=== PATIENT | female | born 1945 | race Two or more races ===

== ENCOUNTER 2024-10-03 10:02 | Inpatient (IN) | payer MEDICARE, MEDICAID, SELFPAY ==
[2024-10-03] VITALS (9 sets, daily range): BP systolic 159–195; BP diastolic 40–63; PULSE 42–50; RESP 15–24; TEMP 36.1–37.1; O2SAT 92–95
--- NOTE | 2024-10-03 10:20 | XR_ITS ---
Examination: PA lateral chest 2 views TECHNIQUE: Upright PA lateral chest 2 views Date and time: October 03, 2024 1024 hours INDICATIONS: Chest pain today. FINDINGS: Moderate CHF Mild enlargement cardiac contour. Prominent vascular congestion including central vascular engorgement and perihilar edema Consider superimposed bilateral pneumonia. Increased AP dimension chest IMPRESSION: Moderate CHF Consider superimposed bilateral pneumonia
--- NOTE | 2024-10-03 10:20 | EKG_ITS ---
[facility] Test Date: 2024-10-03 Pat Name: KAUSHAL SANON Department: Room: - Gender: Female [employer]: : 1945 Requested By: Scott Golden Order Number: [id number] Reading MD: Scott Golden Measurements Intervals [place] Rate: 44 P: 9 GA: 155 QRS: 110 QRSD: 140 T: 71 QT: 480 QTc: 412 Interpretive Statements SINUS BRADYCARDIA INDETERMINATE AXIS RIGHT BUNDLE BRANCH BLOCK [120+ ms QRS DURATION, UPRIGHT V1, 40+ ms S IN I/aVL/V4/V5/V6] No previous ECG available for comparison /store/S0/[id number]
--- NOTE | 2024-10-03 10:20 | PD.EDRME ---
Rapid Medical Screening Exam [facility] Arrival date/time: 10/03/24 10:02 79-year-old female with no known medical history presents to the emergency room with a chief complaint of cough, shortness of breath, generalized weakness x 1 week. Patient was sent over by her primary care provider to rule out pneumonia I have greeted and performed a focused initial assessment of this patient. A comprehensive ED assessment and evaluation of the patient, analysis of all test results, and completion of the medical decision making process will be conducted by additional ED providers. Chief Complaint: Shortness of Breath/Dyspnea Vital signs: Vital Signs Temperature 98.7 F 10/03/24 10:16 Pulse Rate 47 L 10/03/24 10:16 Respiratory Rate 24 H 10/03/24 10:16 Blood Pressure 168/63 H 10/03/24 10:16 Pulse Oximetry (%) 95 10/03/24 10:16 Oxygen Delivery Method Room Air 10/03/24 10:16 Vital signs reviewed by provider: Yes
[2024-10-03 10:38] LABS: Basophils # (Auto) 0.0 Thou/mm3 (0.0-0.2); Basophils % (Auto) 1 % (0-2.5); Eosinophils # (Auto) 0.0 Thou/mm3 (0.0-0.5); Eosinophils % (Auto) 1 % (0-10); Hematocrit 39.2 % (36.0-46.0); Hemoglobin 13.0 g/dL (12.0-16.0); Immature Granulocytes Auto 0.02 Thou/mm3 (0.00-0.00); Lymphocytes # (Auto) 0.9 Thou/mm3 (1.0-4.8); Lymphocytes % (Auto) 14 % (10-50); Mean Corpuscular HGB Conc 33.2 g/dl (31.0-37.0); Mean Corpuscular Hemoglobin 31.3 pg (25.0-35.0); Mean Corpuscular Volume 95 fL (80-100); Monocytes # (Auto) 0.6 Thou/mm3 (0.0-0.8); Monocytes % (Auto) 9 % (0-12); Neutrophils # (Auto) 4.9 Thou/mm3 (1.8-7.7); Neutrophils % (Auto) 75 % (37-80); Nucleated Red Blood Cell # 0.00 Thou/mm3 (0.00-0.00); Nucleated Red Blood Cell % 0 /100 WBC (0); Platelet Count 147 Thou/mm3 (140-440); RDW Standard Deviation 48.6 fL (36.4-46.3); Red Blood Count 4.15 Miln/mm3 (4.00-5.20); White Blood Count 6.5 Thou/mm3 (3.6-11.0)
[2024-10-03 10:56] LABS: INR 1.0 (0.9-1.3); Partial Thromboplastin Time 25.6 Seconds (22.0-36.0); Prothrombin Time 11.0 Seconds (9.0-12.2)
[2024-10-03 10:57] LABS: B-Type Natriuretic Peptide 758 pg/mL (0-100)
[2024-10-03 11:05] LABS: Alanine Aminotransferase 78 U/L (10-49); Albumin, Serum 4.3 gm/dL (3.4-4.8); Albumin/Globulin Ratio 2.0 (1.2-2.2); Alkaline Phosphatase 127 U/L (46-116); Anion Gap 11 (7-16); Aspartate Amino Transferase 91 U/L (0-34); BUN/Creatinine Ratio 19 Ratio (12-20); Bilirubin,Total 0.9 mg/dL (0.3-1.2); Blood Urea Nitrogen 13 mg/dL (9-23); Calcium 9.3 mg/dL (8.3-10.6); Calcium (Corrected) 9.3 mg/dL (8.5-10.1); Carbon Dioxide 26.3 mMol/L (20.0-31.0); Chloride 107 mMol/L (98-107); Creatinine (Component) 0.7 mg/dL (0.6-1.3); Globulin 2.1 gm/dL (2.3-3.5); Glucose 136 mg/dL (74-106); Osmolality,Calculated 288 (275-295); Potassium 4.1 mMol/L (3.4-5.1); Sodium 144 mMol/L (136-145); Total Protein 6.4 gm/dL (5.7-8.2); Troponin I 0.026 ng/mL (0.0-0.045); eGFR > 60 See Note
[2024-10-03 11:23] LABS: Collection Type, Urine Clean Catch
--- NOTE | 2024-10-03 11:37 | PD.EDSOB ---
ED SOB =RME/HPI General Chief Complaint: Shortness of Breath/Dyspnea Stated Complaint: SOB, WEAKNESS; SENT BY PCP Time Seen by Provider: 10/03/24 11:34 Arrival date/time: 10/03/24 10:02 Limitations: no limitations RME / HPI RME / HPI Narrative: 10/03/24 10:02 79-year-old female with no known medical history presents to the emergency room with a chief complaint of cough, shortness of breath, generalized weakness x 1 week. Patient was sent over by her primary care provider to rule out pneumonia. She is wearing a cardiac monitoring patch. 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 No history of ACS. She does have a history of hypertension and hyperlipidemia. No other chronic disease. She has had no syncopal episodes or fall. No chest pain. No nausea or vomiting. No lower leg edema. She does endorse new, significant, exertional dyspnea and orthopnea. She has no other acute concerns. Related Data Allergies Allergy/AdvReac Type Severity Reaction Status Date / Time No Known Allergies Allergy Verified 10/03/24 10:08 Review of Systems Review of Systems Systems Reviewed: All systems reviewed, normal except as documented ED Exam General Limitations: Present no limitations General appearance: Present alert and in no apparent distress Head Head exam: Present atraumatic Eye Eye exam: Present normal appearance, PERRL and EOMI ENT ENT exam: Present normal exam, normal oropharynx and mucous membranes moist Neck Neck exam: Present normal inspection, full ROM and trachea midline Chest Chest inspection: Present normal inspection and symmetric chest wall rise Respiratory Respiratory exam: Present respiratory distress and other (Crackles noted bilaterally. With moderate tachypnea.) Cardiovascular Cardiovascular exam: Present normal rhythm, bradycardia and normal heart sounds Abdominal Exam Abdominal exam: Present soft and normal bowel sounds Extremities Exam Extremities exam: Present normal inspection and full ROM Back Exam Back exam: Present normal inspection and full ROM Neurological Exam Neurological exam: Present alert and oriented X3 Psychiatric Psychiatric exam: Present normal affect and normal mood Skin Skin exam: Present warm, dry, intact and normal color Course Quality Measures none Orders Category Date Time Status COVID-19 Screening Questionnaire NOW Care 10/03/24 12:00 Active Decision to Admit X1 Care 10/03/24 12:00 Active EKG (ED ONLY) *Do not use* NOW Care 10/03/24 10:20 Completed EKG (ED Only) Stat Exams 10/03/24 10:20 Draft XR chest 2V Stat Exams 10/03/24 10:20 Completed B-Type Natriuretic Peptide Stat Lab 10/03/24 10:28 Completed CBC Stat Lab 10/03/24 10:28 Completed Comprehensive Metabolic Panel Stat Lab 10/03/24 10:28 Completed Partial Thromboplastin Time Stat Lab 10/03/24 10:28 Completed Prothrombin Time with INR Stat Lab 10/03/24 10:28 Completed Troponin I Stat Lab 10/03/24 10:28 Completed Urinalysis Stat Lab 10/03/24 10:45 Received Furosemide [Lasix Inj] Med 10/03/24 11:46 Discontinued 40 mg IVP X1 ONE cefTRIAXone/D5w 1gm IV premix [Rocephin/D5w 1gm IV Med 10/03/24 11:57 Active premix] 1 gm in 50 ml IV X1 Vital Signs Vital signs: Vital Signs Temperature 98.7 F 10/03/24 10:16 Pulse Rate 47 L 10/03/24 10:16 Respiratory Rate 24 H 10/03/24 10:16 Blood Pressure 168/63 H 10/03/24 10:16 Pulse Oximetry (%) 95 10/03/24 10:16 Oxygen Delivery Method Room Air 10/03/24 10:16 Shortness of Breath / Dyspnea MDM Narrative MDM Narrative:: 10/03/24 10:02 79-year-old female with no known medical history presents to the emergency room with a chief complaint of cough, shortness of breath, generalized weakness x 1 week. Patient was sent over by her primary care provider to rule out pneumonia. She is wearing a cardiac monitoring patch. 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 No history of ACS. She does have a history of hypertension and hyperlipidemia. No other chronic disease. She has had no syncopal episodes or fall. No chest pain. No nausea or vomiting. No lower leg edema. She does endorse new, significant, exertional dyspnea and orthopnea. She has no other acute concerns. On exam, patient's vital signs are stable. She does have mild to moderate tachypnea 28 to 30 breaths/min. She has crackles bilaterally. No pitting edema. Workup reveals no leukocytosis or anemia. Procedures she has elevated glucose at 136 and elevated liver enzymes the AST at 191, ALT of 78, alk phos of 127. Her BNP is 758. Troponin is not elevated. Discussed the need to admit with the patient and her . We are starting on furosemide. We will give her a dose of ceftriaxone for questionable pneumonia. Call placed to hospitalist who will evaluate the patient for admission. Patient data External records reviewed:: None Clinical information provided by:: patient and family Social determinants that could affect healthcare access:: none Patient has the following chronic illnesses:: Hyperlipidemia, hypertension How is presenting disease/condition affected by chronic disease/condition?: exacerbated by Evaluation data The following diagnostics were reviewed and interpreted by me:: EKG tracing(s) (Sinus bradycardia at 44 bpm with no GA prolongation, ST changes, there are nonspecific T wave changes. ) Lab and/or radiology exams considered but not ordered:: n/a Interpretation Summary: CHF, questionable pneumonia, bradycardia Medications / Prescriptions Medications or Prescriptions considered but not ordered:: n/a Medication administrations:: Medication Administration History Ceftriaxone Sodium/Dextrose (Rocephin/D5w 1gm Iv Premix) 1 gm in 50 mls @ 100 mls/hr IV X1 ONE Stop: 10/03/24 12:26 Discontinued Medications Furosemide (Furosemide Inj 10 Mg/Ml Vial 2 Ml) 40 mg IVP X1 ONE Stop: 10/03/24 11:47 See above Consultations Consultation(s) initiated? (list below): No Diagnosis Shortness of Breath Differential Diagnosis: congestive heart failure, community acquired pneumonia and asthma with exacerbation Most likely diagnosis given after review of the tests above:: CHF, bradycardia Admission Indicated Admission indicated?: indicated Admission Request Was there a request for admission?: Yes Admission Attestation Admission request attestation: Discussed case with [] from Hospitalist service regarding admission. Discussed patients ED course, exam findings, labs, and radiology results. The Hospitalist [agrees,declines] to accept the patient for admission. Disposition Plan Disposition Plan: Admit Discharge Plan Plan Patient Disposition: Admit Acute Care w/in Hospital Patient condition on transfer: Stable Problem List Clinical Impression: Community acquired pneumonia, Congestive heart failure, Bradycardia Patient/Caregiver Discharge Instructions Print Language: Colombian Stand Alone Forms: [employer] Award Info., Patient Portal Info Letter
[2024-10-03] MEDS: FUROSEMIDE INJ 10 MG/ML VIAL 2 ML 40 MG IVP (12:11)
[2024-10-03 12:28] LABS: Bilirubin,Urine Negative (Negative); Blood,Urine 1+ (Negative); Clarity,Urine Turbid (Clear/Hazy); Color,Urine Yellow (Lt Yel-Yel); Glucose, Urine Trace (Negative); Ketones,Urine Negative (Negative); Leukocyte Esterase,Urine Positive (Negative); Nitrite,Urine Negative (Negative); PH,Urine 6.0 (5.0-7.0); Protein,Urine 1+ (Neg - Trace); RBC,Urine 8 /hpf (0-3); Specific Gravity,Urine 1.028 (1.001-1.035); Squamous Epithelial Cell,Urine 19 /hpf (0-5); Urobilinogen,Urine 2.0 mg/dL (0.0-1.0); WBC,Urine 41 /hpf (0-5)
--- NOTE | 2024-10-03 12:39 | ECHO_ITS ---
Transthoracic Echo Report Ht (in): Wt (lb): 117 Exam Location: Echo Lab Status: Emergency Doctor Of Veterinary Medicine: Nadia Hernandez Indications: Procedure Performed: BP: 164 / 46 HR: 44 Technical Quality: Technically difficult study MEASUREMENTS (Male / Female) Normal Values 2D ECHO LV Diastolic Diameter PLAX 5.0 cm 4.2 - 5.9 / 3.9 - 5.3 cm LV Systolic Diameter PLAX 3.2 cm IVS Diastolic Thickness 0.9 cm 0.6 - 1.0 / 0.6 - 0.9 cm LVPW Diastolic Thickness 1.0 cm 0.6 - 1.0 / 0.6 - 0.9 cm LV Relative Wall Thickness 0.4 LVOT Diameter 1.7 cm Aortic Root Diameter 2.4 cm LA Systolic Diameter LX 3.4 cm 3.0 - 4.0 / 2.7 - 3.8 cm LV Ejection Fraction MOD 4C 59.8 % LV Ejection Fraction 4C AL 60.7 % Ascending Aorta Diameter 2.4 cm M-MODE Aortic Root Diameter MM 2.8 cm LA Systolic Diameter MM 4.5 cm LA Ao Ratio MM 1.6 AV Cusp Separation MM 1.9 cm DOPPLER AV Peak Velocity 177.0 cm/s AV Peak Gradient 12.5 mmHg AV Mean Gradient 6.0 mmHg AV Velocity Time Integral 42.6 cm AI Peak Velocity 386.0 cm/s AI Peak Gradient 59.6 mmHg AI Pressure Half Time 952.0 ms LVOT Peak Velocity 150.5 cm/s LVOT Peak Gradient 9.1 mmHg LVOT Velocity Time Integral 34.4 cm AV Area Cont Eq vti 1.8 cm? AV Area Cont Eq pk 1.9 cm? MV Area PHT 5.1 cm? MR Peak Velocity 429.0 cm/s MR Peak Gradient 73.6 mmHg Mitral E Point Velocity 75.7 cm/s Mitral A Point Velocity 95.6 cm/s Mitral E to A Ratio 0.8 LV E' Lateral Velocity 6.2 cm/s Mitral E to LV E' Lateral Ratio 12.2 LV E' Septal Velocity 3.2 cm/s Mitral E to LV E' Septal Ratio 23.7 TR Peak Velocity 246.0 cm/s TR Peak Gradient 24.2 mmHg PV Peak Velocity 167.0 cm/s PV Peak Gradient 11.2 mmHg FINDINGS Left Ventricle Normal left ventricular size, wall thickness, systolic function with no obvious regional wall motion abnormalities. The ejection fraction is visually estimated at 55-60 %. There is grade I diastolic dysfunction of the left ventricle (impaired relaxation pattern). Right Ventricle The right ventricle is normal in size and systolic function. The estimated right ventricular systolic pressure, 30 mmHg. RAP 5. Left Atrium The left atrial cavity size is moderately increased. Right Atrium The right atrium is normal by two-dimensional imaging, color flow and Doppler imaging with no structural abnormalities, no thrombus formation present. Atrial Septum The interatrial septum appears normal with no evidence of a shunt. Aorta The aorta is normal by two-dimensional, color flow and Doppler interrogation. Mitral Valve The mitral valve is normal by two-dimensional, color flow and Doppler interrogation. Mild mitral regurgitation. Aortic Valve [id number] aortic valve regurgitation. Tricuspid Valve The tricuspid valve is normal by two-dimensional, color flow and Doppler interrogation. There is mild tricuspid valve regurgitation. Pulmonic Valve Mild pulmonic valve regurgitation. Vessels The pulmonary artery appears normal. The inferior vena cava pulmonary and hepatic veins appear normal. Pericardium There is a tiny, hemodynamically insignificant pericardial effusion. CONCLUSIONS Indication: CHF Normal LV size, wall thickness. Estimated EF at 55-60 %. Grade I diastolic dysfunction. The RV is normal in size and systolic function. The estimated RVSP , 30 mmHg. RAP 5. Modertely dilated LA and mildly dilated RA. Mild MR, TR and PI. Mild AI. No pericardial effusion. Jerzy Pelletier (Electronically Signed) Final Date: 04 October 2024 21:44
[2024-10-03] MEDS: cefTRIAXone/D5w 1gm IV premix 1 GM/50 ML BAG IV (12:54)
--- NOTE | 2024-10-03 13:19 | ESHP_ITS ---
<Statement entered by Deep Zhang MD - 10/03/24 16:22> This patient is a 79-year-old female with past medical history of hypertension hyperlipidemia presented with shortness of breath, x 1 week ago. She reported that she has been having shortness of breath with orthopnea and PND. Patient had mild trace edema on her lower extremities. She is also following her treater helper in [place] for sinus bradycardia with a Holter monitor. Denies any chest pain. In the ED, patient's blood pressure was elevated with mild elevation in troponin I. Patient will be admitted for workup of CHF, and hypertensive emergency. Patient will be continued on strict AMNA's, fluid restriction, Lasix 40 mg IV twice daily, echocardiogram and cardiology has been consulted for further evaluation. Electrolytes will be repleted as necessary. Will continue to monitor heart rate as well. All labs and orders were reviewed. Patient will be continued on lisinopril 10 mg since blood pressure was elevated and dropped after diuresing with IV lasix. we will continue with current management. I discussed and supervised with the hospital internship physician who took care of this patient. I personally saw and examined the patient. I agree with most of the assessment and plan. Disclaimer: Despite multiple revisions, due to the dictation software being used, the document bellow may not be free of grammatical errors including phonetic/typographic errors. However, this does not deter from our commitment to providing health care in the patient's best interest in mind. Plan of care discussed with attending Physician Dr. Mayda Zhang MD PGY-3 Documentation for date of: 10/03/24 HPI History of Present Illness Chief complaint: Shortness of Breathe/Dyspnea History of present illness: Mrs. Stewart is a 79F with history of HTN and hyperlipidemia presents for shortness of breathe. Pt reports she has been getting short of breathe for the past week with some cough, and requires head elevation at night with pillows to help her sleep. She reports exertional dyspnea and can only walk 10-12 steps before she gets short of breathe. She does not use oxygen at home. She was recently seen at a cardiology clinic in [place], [place] for bradycardia, where she was put on a Holster monitor. Pt denies nasuea, vomiting, chest pain, abdominal pain, dysuria, dizziness, syncope, or lightheadedness. She denies any cardiac stents, surgery, or cardiac history. Last bowel movement was yesterday. On exam, pt appears tachypeanic with accessory muscle use. Crackles auscultated at bilateral lower lung field. Blood pressure noted to be at 200s/40s on initial encounter. She's admitted for CHF exacerbation. ED Course In the ED, WBC 6.5, Hgb 13.0, Na 144, K 4.1, Cl 107, Cr 0.7, BNP 758. Initial troponin was 0.026, repeat trop 0.034. UA shows 41 WBC, 19 Squamous Epithelial cells, and positive leukocyte esterase. Chest XR shows : moderate CHF, prominent vascular congestion, perihilar edema, consider superimposed bilateral pneumonia. EKG shows sinus roberto carlos at rate of 44. Ceftriaxone 1g given. Furosemide 40mg x1. ROS * Constitutional: sob, a/o x 3, denies fever/chills * GI: Denies nausea, vomiting. * CV: Denies chest pain or palpitations. * Resp: +SOB, +orthopnea * : Denies dysuria, CVA tenderness, suprapubic tenderness. * Neuro: Denies dizziness, syncope. No focal neuro deficit. * Skin: dry and intact. Past Medical History * Hypertension * Hyperlipidemia Social History * Denies alcohol or drug use. * Smoke 2-3 cig/day. Reports cessation of cigarette use. Surgical History * left knee surgery Allergies * NKDA Home Meds * Albuterol sulfate INH Q4H PRN * Aspirin 81 mg PO QD * Atorvastatin 20mg PO QD * Vitamin D3 50mcg PO QD * Lisinopril 5mg PO QD * Nitroglycerin 0.4mg buccal PRN Exam Vital Signs Temp Pulse Resp BP Pulse Ox O2 Del Method 98.7 F 48 L 24 H 195/59 H 95 Room Air 10/03/24 10:16 10/03/24 12:11 10/03/24 10:16 10/03/24 12:11 10/03/24 10:16 10/03/24 10:16 Narrative Exam General: Oriented x 3, tachypneic, distressed. Skin: Good turgor, no rash, unusual bruising or prominent lesions. Head: Normocephalic, atraumatic, no visible or palpable masses, depressions, or scaring. Neck: No JVD noted. Heart: Bradycardic, +S1/S2, no gallops Lungs: Bilateral crackles to lower lung field. Abdomen: No tenderness, organomegaly, masses, or hernia Extremities: No amputations or deformities, cyanosis, edema or varicosities, peripheral pulses intact. No bilateral pitting edema Results: Labs 10/04/24 04:47 10/04/24 04:47 Labs: Short CBC 10/03/24 Range/Units 10:28 WBC 6.5 (3.6-11.0) Thou/mm3 Hgb 13.0 (12.0-16.0) g/dL Hct 39.2 (36.0-46.0) % Plt Count 147 (140-440) Thou/mm3 BMP 10/03/24 10:28 Sodium 144 Potassium 4.1 Chloride 107 Carbon Dioxide 26.3 BUN 13 Creatinine 0.7 Glucose 136 H Calcium 9.3 Cardiac Enzymes 10/03/24 Range/Units 10:28 Troponin I 0.026 (0.0-0.045) ng/mL Liver Function 10/03/24 Range/Units 10:28 Total Bilirubin 0.9 (0.3-1.2) mg/dL AST 91 H (0-34) U/L ALT 78 H (10-49) U/L Alkaline Phosphatase 127 H (46-116) U/L Albumin 4.3 (3.4-4.8) gm/dL Urine 10/03/24 Range/Units 10:45 Urine Color Yellow (Lt Yel-Yel) Urine Clarity Turbid A (Clear/Hazy) Urine pH 6.0 (5.0-7.0) Ur Specific [place] 1.028 (1.001-1.035) Urine Protein 1+ A (Neg - Trace) Urine Glucose (UA) Trace (Negative) Quality Measures Quality Measures none Advance care planning discussed with:: patient Medications Home Medications and Allergies Home Medications ?Medication ?Instructions ?Recorded ?Confirmed ?Type albuterol sulfate 90 mcg/actuation 1 inh inhalation Q4 H PRN shortness 10/03/24 10/03/24 History aerosol inhaler of breath or wheezing aspirin 81 mg tablet 81 mg PO QDAY 10/03/2410/03 History atorvastatin 20 mg tablet 20 mg PO QDAY 10/03/2410/03 History cholecalciferol (vitamin D3) 50 50 mcg PO QDAY 5 10/03/24 History mcg (2,000 unit) tablet (D3 DOTS) lisinopril 5 mg tablet 5 mg PO QDAY 10/03/24 History nitroglycerin 0.4 mg sublingual 0.4 mg buccal Q5MIN IN N chest pain 10/03/24 10/03/24 History tablet Allergies Allergy/AdvReac Type Severity Reaction Status Date / Time No Known Allergies Allergy Verified 10/03/24 10:08 Visit Medications Acetaminophen (Acetaminophen 325 Mg Tablet) 650 mg PO Q6H PRN PRN Reason: Fever >101.5 Stop: 11/02/24 12:36 Acetaminophen (Acetaminophen 325 Mg Tablet) 650 mg PO Q6H PRN PRN Reason: PAIN SCALE 1-3 (mild Stop: 11/02/24 12:36 Albuterol (Albuterol Inh 8 Gm) 1 puff INH Q4H PRN PRN Reason: shortness of breath or wheezing Stop: 11/02/24 12:35 Aspirin (Aspirin Ec 81 Mg Tabec) 81 mg PO QDAY [facility] Stop: 11/02/24 12:44 Atorvastatin Calcium (Atorvastatin Calcium 20 Mg Tablet) 20 mg PO HS [facility] Stop: 11/02/24 20:59 Dextrose (Dextrose 50%-Water Inj 50 Ml Syringe) 25 ml IV Q15MIN PRN PRN Reason: BG 50-70 responsive npo pt Stop: 11/02/24 12:42 Dextrose (Dextrose 50%-Water Inj 50 Ml Syringe) 50 ml IV Q15MIN PRN PRN Reason: BG <50 OR BG <70 & pt unresponsive Stop: 11/02/24 12:42 Furosemide (Furosemide Inj 10 Mg/Ml 4ml Vial) 40 mg IVP BIDD [facility] Stop: 11/02/24 17:59 Glucagon (Glucagon Inj 1 Mg Vial) 1 mg IM Q15MIN PRN PRN Reason: BG <70, and no IV access Heparin Sodium (Porcine) (Heparin Sod Inj 5000 Unit/Ml Vial) 5,000 unit SC Q8HR [facility] Stop: 10/17/24 13:59 Insulin Human Lispro (Insulin Lispro (Admelog) 1 Unit/0.01 Ml Unit) 0 unit SC AC [facility]; Protocol Stop: 11/02/24 16:59 Lisinopril (Lisinopril 20 Mg Tablet) 20 mg PO QDAY SONU Stop: 11/03/24 08:59 Nitroglycerin (Nitroglycerin 0.4 Mg Subl Btl #25) 0.4 mg SL Q5MIN PRN PRN Reason: chest pain Stop: 11/02/24 12:35 Ondansetron HCl (Ondansetron Inj 2 Mg/Ml Inj 2 Ml) 4 mg IVP Q6H PRN; Protocol PRN Reason: NAUSEA OR VOMITING Stop: 11/02/24 12:36 Pantoprazole Sodium (Pantoprazole 40 Mg Tablet) 40 mg PO QDAY SONU Stop: 11/03/24 08:59 Sennosides (Senna Tablet) 1 tab PO QDAY PRN; Protocol PRN Reason: constipation Stop: 11/02/24 12:36 Discontinued Medications Furosemide (Furosemide Inj 10 Mg/Ml Vial 2 Ml) 40 mg IVP X1 ONE Stop: 10/03/24 11:47 Last Admin: 10/03/24 12:11 Dose: 40 mg Hydralazine HCl (Hydralazine Inj 20 Mg/Ml Vial) 5 mg IVP Q6HR PRN PRN Reason: SBP>180 Stop: 11/02/24 12:36 Ceftriaxone Sodium/Dextrose (Rocephin/D5w 1gm Iv Premix) 1 gm in 50 mls @ 100 mls/hr IV X1 ONE Stop: 10/03/24 12:26 Last Admin: 10/03/24 12:54 Dose: 100 mls/hr Lisinopril (Lisinopril 20 Mg Tablet) 20 mg PO X1 ONE Stop: 10/03/24 13:13 Assessment & Plan Plan 79F with history of hypertension and hyperlipidemia presents for SOB. She reports cough and orthopnea for the past week, denies chest pain or cardiac history. She was recently seen by an outpatient treater helper for bradycardia and is currently wearing a holster monitor. Wide pulse pressure noted on VS. Admitted for CHF Exacerbation. #CHF exacerbation History of orthopnea, bilateral fluffy infiltrate on chest XR. Initial BNP 758. - Furosemid 40mg - strict I/O - monitor fluid output - Plan for CPAP if pt decompensates #Hypertension urgency Initial BP on ED arrival 195/59. - Slowly decrease BP no more than 25% of initial BP - watch for signs of end organ damage. - Start Lisinopril 10mg #Possible COPD exacerbation Hx of smoking for unknown years. Consider superimposed bilateral pneumonia - Pending Cocci serology - Pending flu swabs #Asymptomatic Bradycardia Pt following treater helper outpatient, wearing a holster monitor. - Initial EKG in ED shows Sinus Bradycardia at a rate of 44. - Avoid Beta Blockers, diltizam, or verapamil - If symptomatic, consider external pacing #Asymptomatic pyuria Pt denies dysuria, suprapubic pain, CVA tenderness, afebrile - no treatment indicated unless symptomatic #Hyperlipidemia - Continue Atorvastatin 20mg PO HS - Follow up with PCP #Possible Aortic regurgitation Wide pulse pressure exceeding 60mmHg - Pending Echo - Consider TAVR - Cardiology consult #Transaminitis Initial AST 91, ALT 78. Likely from venous congestion. - Daily labs - Follow up with PCP Dispo: [facility] DVT prophylaxis: Heparin, SCDs GI prophylaxis: Protonix 40mg Diet: Cardiac diet Lines: Peripheral IV Code status: Full code Case discussed with my senior resident Dr. Zhang Case discussed with my attending Dr. Mayda Guzmán DO PGY 1 Attending Provider Attestation/Addendum Namita Noland DO, attest that I was physically present for the montes portions of the service and evaluated the patient with the resident and I reviewed and discussed the case with the resident and agree with the resident's findings and plans of care as documented above Patient is a 79-year-old female with past medical history of hypertension, hyperlipidemia and asymptomatic bradycardia who presented to the ED with worsening shortness of breath for the past week. Patient has been following a treater helper in [place] due to bradycardia and has a Holter monitor on. Patient states that she has noted worsening dyspnea on exertion limiting her daily activities. Patient also endorses having a dry cough and denies any recent sick contacts or travel. Upon evaluation in the ED, patient was noted to have chest x-ray showing prominent vascular congestion and perihilar edema and moderate CHF. Patient denies any fevers or chills or productive cough otherwise. Troponin was detectable but negative at 0.026. She is also noted to have trace bilateral pitting edema. Patient not requiring any supplemental O2 but is evidently short of breath while speaking. She also endorses having orthopnea. Patient noted to have elevated blood pressure of 195/59 on presentation. Suspect that pulmonary congestion may be secondary to on controlled hypertension as well. Patient takes lisinopril 5 mg daily. Will admit patient to telemetry for further workup and medical management of acute CHF exacerbation. Will obtain echocardiogram to evaluate for possible cardiomyopathy resulting in acute CHF exacerbation. Will start patient on Lasix 40 mg IV twice daily, follow ins and outs and daily weights. Will consult cardiology on-call for further recommendations as well.
[2024-10-03 13:41] LABS: Magnesium 1.7 mg/dL (1.6-2.6); Troponin I 0.034 ng/mL (0.0-0.045)
[2024-10-03] MEDS: HEPARIN SOD INJ 5000 UNIT/ML VIAL SC ×2 (14:12→21:01)
[2024-10-03] MEDS: ASPIRIN EC 81 MG TABEC PO (14:13)
[2024-10-03] MEDS: Magnesium Sulfate 2 GM Ivpb 2 GM/50 ML BAG IV (14:14)
[2024-10-03] MEDS: FUROSEMIDE INJ 10 MG/ML 4ML VIAL 40 MG IVP (17:35)
[2024-10-03 19:03] LABS: Troponin I 0.050 ng/mL (0.0-0.045)
[2024-10-03] MEDS: ATORVASTATIN CALCIUM 20 MG TABLET PO (20:42)
[2024-10-04] VITALS (12 sets, daily range): BP systolic 137–165; BP diastolic 49–72; PULSE 37–55; RESP 15–21; TEMP 36.1–36.6; O2SAT 93–96; BMI 24.5
[2024-10-04] MEDS: ACETAMINOPHEN 325 MG TABLET 650 MG PO ×3 (01:13→23:47)
[2024-10-04 01:30] LABS: Troponin I 0.040 ng/mL (0.0-0.045)
[2024-10-04] MEDS: HEPARIN SOD INJ 5000 UNIT/ML VIAL SC ×3 (06:02→21:10)
[2024-10-04] MEDS: FUROSEMIDE INJ 10 MG/ML 4ML VIAL 40 MG IVP ×2 (06:06→17:18)
[2024-10-04 06:10] LABS: Basophils # (Auto) 0.0 Thou/mm3 (0.0-0.2); Basophils % (Auto) 0 % (0-2.5); Eosinophils # (Auto) 0.2 Thou/mm3 (0.0-0.5); Eosinophils % (Auto) 3 % (0-10); Hematocrit 37.7 % (36.0-46.0); Hemoglobin 12.5 g/dL (12.0-16.0); Immature Granulocytes Auto 0.02 Thou/mm3 (0.00-0.00); Lymphocytes # (Auto) 1.1 Thou/mm3 (1.0-4.8); Lymphocytes % (Auto) 17 % (10-50); Mean Corpuscular HGB Conc 33.2 g/dl (31.0-37.0); Mean Corpuscular Hemoglobin 31.5 pg (25.0-35.0); Mean Corpuscular Volume 95 fL (80-100); Monocytes # (Auto) 0.7 Thou/mm3 (0.0-0.8); Monocytes % (Auto) 11 % (0-12); Neutrophils # (Auto) 4.2 Thou/mm3 (1.8-7.7); Neutrophils % (Auto) 69 % (37-80); Nucleated Red Blood Cell # 0.00 Thou/mm3 (0.00-0.00); Nucleated Red Blood Cell % 0 /100 WBC (0); Platelet Count 136 Thou/mm3 (140-440); RDW Standard Deviation 47.9 fL (36.4-46.3); Red Blood Count 3.97 Miln/mm3 (4.00-5.20); White Blood Count 6.1 Thou/mm3 (3.6-11.0)
[2024-10-04 06:22] LABS: INR 1.1 (0.9-1.3); Partial Thromboplastin Time 31.6 Seconds (22.0-36.0); Prothrombin Time 11.6 Seconds (9.0-12.2)
[2024-10-04 06:49] LABS: Glucose Estimated Average 128 mg/dL (80-131); Hemoglobin A1C 6.1 % Hgb (4.8-6.0)
[2024-10-04 06:55] LABS: Alanine Aminotransferase 52 U/L (10-49); Albumin, Serum 3.6 gm/dL (3.4-4.8); Albumin/Globulin Ratio 1.8 (1.2-2.2); Alkaline Phosphatase 106 U/L (46-116); Anion Gap 11 (7-16); Aspartate Amino Transferase 46 U/L (0-34); BUN/Creatinine Ratio 19 Ratio (12-20); Bilirubin,Total 0.8 mg/dL (0.3-1.2); Blood Urea Nitrogen 13 mg/dL (9-23); Calcium 8.7 mg/dL (8.3-10.6); Calcium (Corrected) 9.0 mg/dL (8.5-10.1); Carbon Dioxide 29.9 mMol/L (20.0-31.0); Cardiac Risk Estimate 2.1 RATIO (3.7-5.6); Chloride 102 mMol/L (98-107); Cholesterol 146 mg/dL (132-200); Creatinine (Component) 0.7 mg/dL (0.6-1.3); Globulin 2.0 gm/dL (2.3-3.5); Glucose 106 mg/dL (74-106); HDL Cholesterol 68 mg/dL (40-60); LDL Cholesterol,Calculated 60 mg/dL (0-130); Magnesium 1.8 mg/dL (1.6-2.6); Osmolality,Calculated 285 (275-295); Phosphorous 3.4 mg/dL (2.4-5.1); Potassium 3.6 mMol/L (3.4-5.1); Sodium 143 mMol/L (136-145); Thyroid Stimulating Hormone 2.57 uIU/mL (0.55-4.78); Total Protein 5.6 gm/dL (5.7-8.2); Triglycerides 90 mg/dL (30-150); eGFR > 60 See Note
[2024-10-04] MEDS: ASPIRIN EC 81 MG TABEC PO (08:18)
[2024-10-04] MEDS: PANTOPRAZOLE 40 MG TABLET PO (08:18)
[2024-10-04] MEDS: Magnesium Sulfate 4 GM Ivpb 4 GM/50 ML BAG IV (08:19)
[2024-10-04 08:28] LABS: Influenza A Ag Negative; Influenza B Ag Negative
--- NOTE | 2024-10-04 09:02 | ESPR_ITS ---
<Statement entered by Deep Zhang MD - 10/04/24 14:35> Patient was seen and examined at the bedside. Patient's breathing difficulty has markedly improved and she had adequate urine output with 2.2 L. Continues to have mild crackles bilaterally. Weight 53 kg. Patient will be continued on IV Lasix 40 mg IV twice daily. Currently awaiting cardiology recommendations for further optimization of heart failure meds. Heart rate has been around 40s however asymptomatic. Will continue to monitor. PT evaluated the patient today. I discussed and supervised with the materials intern physician who took care of this patient. I personally saw and examined the patient. I agree with most of the assessment and plan. Disclaimer: Despite multiple revisions, due to the dictation software being used, the document bellow may not be free of grammatical errors including phonetic/typographic errors. However, this does not deter from our commitment to providing health care in the patient's best interest in mind. Plan of care discussed with attending Physician Dr. Mayda Zhang MD PGY-3 Documentation for date of: 10/04/24 Subjective Subjective Interval history: No overnight events. Evaluated at bedside. Net fluid deficit 2210mL overnight. Pt appears well, reports significant improvement with breathing. Her vitals was stable overnight, with O2 sat at 95% on RA. Pt refers pain to her back, but was unspecific in severity and nature, likely from increased respiratory muscle use from CHF exacerbation yesterday. Pending echo and cardiology consult today. Exam Vital Signs Temp Pulse Resp BP Pulse Ox O2 Del Method 97.8 F 55 L 21 H 157/60 H 95 Room Air 10/04/24 08:00 10/04/24 08:18 10/04/24 08:00 10/04/24 08:18 10/04/24 08:00 10/04/24 08:00 Narrative Exam General: Well appearing, well nourished, in no distress. Oriented x 3, normal mood and affect. Ambulating without difficulty. Skin: Good turgor, no rash, unusual bruising or prominent lesions Neck: No JVD noted. Heart: No cardiomegaly or thrills; regular rate and rhythm, no murmur or gallop Lungs: Diminished lung sounds to bilateral lower lung henry. +crackles. Abdomen: Bowel sounds normal, no tenderness, organomegaly, masses, or hernia Extremities: No amputations or deformities, cyanosis, edema or varicosities, peripheral pulses intact. No bilateral pitting edema noted. Objective Labs 10/05/24 04:40 10/05/24 04:40 Labs: Laboratory Results - last 24 hr 10/03/24 10/03/24 10/03/24 10:28 10:45 12:56 WBC 6.5 RBC 4.15 Hgb 13.0 Hct 39.2 MCV 95 MCH 31.3 MCHC 33.2 RDW Std Deviation 48.6 H Plt Count 147 Neut % (Auto) 75 Lymph % (Auto) 14 [place] % (Auto) 9 Eos % (Auto) 1 Baso % (Auto) 1 Neut # (Auto) 4.9 Lymph # (Auto) 0.9 L [place] # (Auto) 0.6 Eos # (Auto) 0.0 Baso # (Auto) 0.0 Immature Gran # (Auto) 0.02 H Absolute Nucleated RBC 0.00 Immature Gran % 0 Nucleated RBC % 0 PT 11.0 INR 1.0 APTT 25.6 Sodium 144 Potassium 4.1 Chloride 107 Carbon Dioxide 26.3 Anion Gap 11 BUN 13 Creatinine 0.7 Estim Creat Clear Calc Not Performed. eGFR > 60 BUN/Creatinine Ratio [address] Glu mg/dL Hemoglobin A1c Calculated Osmolality 288 Calcium 9.3 Corrected Calcium 9.3 Phosphorus Magnesium 1.7 Total Bilirubin 0.9 AST 91 H ALT 78 H Alkaline Phosphatase 127 H Troponin I 0.026 0.034 B-Natriuretic Peptide 758 H* Total Protein 6.4 Albumin 4.3 Globulin 2.1 L Albumin/Globulin Ratio 2.0 Triglycerides Cholesterol LDL Cholesterol, Calc HDL Cholesterol Cholesterol/HDL Ratio TSH Ur Collection Type Clean Catch Urine Color Yellow Urine Clarity Turbid A Urine pH 6.0 Ur Specific [place] 1.028 Urine Protein 1+ A Urine Glucose (UA) Trace Urine Ketones Negative Urine Blood 1+ A Urine Nitrite Negative Urine Bilirubin Negative Urine Urobilinogen (Auto) 2.0 Ur Leukocyte Esterase Positive Urine RBC 8 H Urine WBC 41 H Ur Squamous Epith Cells 19 H Urine Bacteria None Influenza A (Rapid) Influenza B (Rapid) 10/03/24 10/04/24 10/04/24 18:19 01:00 04:47 WBC 6.1 RBC 3.97 L Hgb 12.5 Hct 37.7 MCV 95 MCH 31.5 MCHC 33.2 RDW Std Deviation 47.9 H Plt Count 136 L Neut % (Auto) 69 Lymph % (Auto) 17 [place] % (Auto) 11 Eos % (Auto) 3 Baso % (Auto) 0 Neut # (Auto) 4.2 Lymph # (Auto) 1.1 [place] # (Auto) 0.7 Eos # (Auto) 0.2 Baso # (Auto) 0.0 Immature Gran # (Auto) 0.02 H Absolute Nucleated RBC 0.00 Immature Gran % 0 Nucleated RBC % 0 PT 11.6 INR 1.1 APTT 31.6 Sodium 143 Potassium 3.6 D Chloride 102 Carbon Dioxide 29.9 Anion Gap 11 BUN 13 Creatinine 0.7 Estim Creat Clear Calc Not Performed. eGFR > 60 BUN/Creatinine Ratio [address] Glu mg/dL 128 Hemoglobin A1c 6.1 H Calculated Osmolality 285 Calcium 8.7 Corrected Calcium 9.0 Phosphorus 3.4 Magnesium 1.8 Total Bilirubin 0.8 AST 46 H ALT 52 H Alkaline Phosphatase 106 D Troponin I 0.050 H* 0.040 B-Natriuretic Peptide Total Protein 5.6 L Albumin 3.6 D Globulin 2.0 L Albumin/Globulin Ratio 1.8 Triglycerides 90 Cholesterol 146 LDL Cholesterol, Calc 60 HDL Cholesterol 68 H Cholesterol/HDL Ratio 2.1 L TSH 2.57 Ur Collection Type Urine Color Urine Clarity Urine pH Ur Specific [place] Urine Protein Urine Glucose (UA) Urine Ketones Urine Blood Urine Nitrite Urine Bilirubin Urine Urobilinogen (Auto) Ur Leukocyte Esterase Urine RBC Urine WBC Ur Squamous Epith Cells Urine Bacteria Influenza A (Rapid) Influenza B (Rapid) 10/04/24 07:36 WBC RBC Hgb Hct MCV MCH MCHC RDW Std Deviation Plt Count Neut % (Auto) Lymph % (Auto) [place] % (Auto) Eos % (Auto) Baso % (Auto) Neut # (Auto) Lymph # (Auto) [place] # (Auto) Eos # (Auto) Baso # (Auto) Immature Gran # (Auto) Absolute Nucleated RBC Immature Gran % Nucleated RBC % PT INR APTT Sodium Potassium Chloride Carbon Dioxide Anion Gap BUN Creatinine Estim Creat Clear Calc eGFR BUN/Creatinine Ratio Glucose Estimated Ave Glu mg/dL Hemoglobin A1c Calculated Osmolality Calcium Corrected Calcium Phosphorus Magnesium Total Bilirubin AST ALT Alkaline Phosphatase Troponin I B-Natriuretic Peptide Total Protein Albumin Globulin Albumin/Globulin Ratio Triglycerides Cholesterol LDL Cholesterol, Calc HDL Cholesterol Cholesterol/HDL Ratio TSH Ur Collection Type Urine Color Urine Clarity Urine pH Ur Specific [place] Urine Protein Urine Glucose (UA) Urine Ketones Urine Blood Urine Nitrite Urine Bilirubin Urine Urobilinogen (Auto) Ur Leukocyte Esterase Urine RBC Urine WBC Ur Squamous Epith Cells Urine Bacteria Influenza A (Rapid) Negative Influenza B (Rapid) Negative Quality Measures Quality Measures none Advance care planning discussed with:: patient Assessment & Plan Assessment Current Active Medications: Generic Name Dose Route Start Last Admin Trade Name Freq PRN Reason Stop Dose Admin Acetaminophen 650 mg 10/03/24 12:37 Acetaminophen 325 Mg Tablet PO 11/02/24 12:36 Q6H PRN Fever >101.5 Acetaminophen 650 mg 10/03/24 12:37 10/04/24 01:13 Acetaminophen 325 Mg Tablet PO 11/02/24 12:36 650 mg Q6H PRN Administration PAIN SCALE 1-3 (mild Albuterol 1 puff 10/03/24 12:36 Albuterol Inh 8 Gm INH 11/02/24 12:35 Q4H PRN shortness of breath or wheezing Aspirin 81 mg 10/03/24 12:45 10/04/24 08:18 Aspirin Ec 81 Mg Tabec PO 11/02/24 12:44 81 mg QDAY SONU Administration Atorvastatin Calcium 20 mg 10/03/24 21:00 10/03/24 20:42 Atorvastatin Calcium 20 Mg Tablet PO 11/02/24 20:59 20 mg HS SONU Administration Dextrose 25 ml 10/03/24 12:43 Dextrose 50%-Water Inj 50 Ml Syringe IV 11/02/24 12:42 Q15MIN PRN BG 50-70 responsive npo pt Dextrose 50 ml 10/03/24 12:43 Dextrose 50%-Water Inj 50 Ml Syringe IV 11/02/24 12:42 Q15MIN PRN BG <50 OR BG <70 & pt unresponsive Furosemide 40 mg 10/03/24 18:00 10/04/24 06:06 Furosemide Inj 10 Mg/Ml 4ml Vial IVP 11/02/24 17:59 40 mg BIDD SONU Administration Glucagon 1 mg 10/03/24 12:43 Glucagon Inj 1 Mg Vial IM Q15MIN PRN BG <70, and no IV access Heparin Sodium (Porcine) 5,000 unit 10/03/24 14:00 10/04/24 06:02 Heparin Sod Inj 5000 Unit/Ml Vial SC 10/17/24 13:59 5,000 unit Q8HR SONU Administration Magnesium Sulfate 4 gm in 50 mls @ 12.5 mls/hr 10/04/24 07:27 10/04/24 08:19 Magnesium Sulfate Ivpb IV 10/04/24 11:26 12.5 mls/hr X1 ONE Administration Insulin Human Lispro 0 unit 10/03/24 17:00 10/04/24 08:11 Insulin Lispro (Admelog) 1 Unit/0.01 Ml Unit SC 11/02/24 16:59 Not Given AC SONU Protocol Lisinopril 10 mg 10/04/24 09:00 10/04/24 08:18 Lisinopril 2.5 Mg Tablet PO 11/03/24 08:59 10 mg QDAY SONU Administration Nitroglycerin 0.4 mg 10/03/24 12:36 Nitroglycerin 0.4 Mg Subl Btl #25 SL 11/02/24 12:35 Q5MIN PRN chest pain Ondansetron HCl 4 mg 10/03/24 12:37 Ondansetron Inj 2 Mg/Ml Inj 2 Ml IVP 11/02/24 12:36 Q6H PRN NAUSEA OR VOMITING Protocol Pantoprazole Sodium 40 mg 10/04/24 09:00 10/04/24 08:18 Pantoprazole 40 Mg Tablet PO 11/03/24 08:59 40 mg QDAY SONU Administration Sennosides 1 tab 10/03/24 12:37 Senna Tablet PO 11/02/24 12:36 QDAY PRN constipation Protocol Plan 79F with history of hypertension and hyperlipidemia presents for SOB. She reports cough and orthopnea for the past week, denies chest pain or cardiac history. She was recently seen by an outpatient cell plasterer for bradycardia and is currently wearing a holster monitor. Wide pulse pressure noted on VS. Admitted for CHF Exacerbation. #CHF exacerbation History of orthopnea, bilateral fluffy infiltrate on chest XR. Initial BNP 758. - Continue Furosemide 40mg - strict I/O - monitor fluid output - Plan for CPAP if pt decompensates #Hypertension urgency Initial BP on ED arrival 195/59. - Slowly decrease BP no more than 25% of initial BP - watch for signs of end organ damage. - Continue Lisinopril 10mg #Possible COPD exacerbation Hx of smoking for unknown years. Consider superimposed bilateral pneumonia - Pending Cocci serology - Flu A and B negative #Asymptomatic Bradycardia Pt following cell plasterer outpatient, wearing a holster monitor. - Initial EKG in ED shows Sinus Bradycardia at a rate of 44. - Avoid Beta Blockers, diltizam, or verapamil - If symptomatic, consider external pacing #Asymptomatic pyuria Pt denies dysuria, suprapubic pain, CVA tenderness, afebrile - no treatment indicated unless symptomatic #Prediabetes A1C 6.1 - follow up with PCP - prediabetes and diet education #Hyperlipidemia - Continue Atorvastatin 20mg PO HS - Follow up with PCP #Possible Aortic regurgitation Wide pulse pressure exceeding 60mmHg - Pending Echo - Consider TAVR - Pending Cardiology consult #Transaminitis Initial AST 91, ALT 78. Likely from venous congestion. - Daily labs - Follow up with PCP Dispo: [facility] DVT prophylaxis: Heparin, SCDs GI prophylaxis: Protonix 40mg Diet: Cardiac diet Lines: Peripheral IV Code status: Full code Case discussed with my senior resident Dr. Zhang Case discussed with my attending Dr. Mayda Guzmán DO PGY 1 Attending Provider Attestation/Addendum Namita Noland DO, attest that I was physically present for the montes portions of the service and evaluated the patient with the resident and I reviewed and discussed the case with the resident and agree with the resident's findings and plans of care as documented above Patient seen and evaluated a.m. She states that she is feeling well. Patient remains on room air, but this has bibasilar crackles. Remains on Lasix 40 mg IV twice daily. Will continue with IV diuresis. Bilateral lower extremity edema is now resolved at this time. Will follow-up with cardiology recommendations and echo results. Anticipate discharge within next 24 hours.
[2024-10-04 12:00] LABS: Cocci Serology, IgM Negative (Negative)
--- NOTE | 2024-10-04 12:18 | PC.PT ---
PT eval only. Patient is at her baseline. Patient is I with transfers and ambulation. (Pls see PT eval notes.)
--- NOTE | 2024-10-04 12:44 | PC.SS ---
Initial assessment: Patient is a 79-year old female admitted for SOB. Patient is Sinhala speaking. Patient was able to confirm demographic information. Patient does not recall the physical home address. Patient states she lives with her spouse, Shalom who is also her emergency contact. Per patient she is independent with ADL's and does not require any DME at home. Patient states she follows with primary care at [facility] in [place] and preferred pharmacy is [facility] in [place], [place]. Patient states her d/c plan is to return home and confirms that her family is able to transport upon return home. Patient denies any current needs/questions at this time. Patient provided her son: Steven Escalante if needed. D/c plan: Home Next of kin: Spouse, Shalom
--- NOTE | 2024-10-04 14:53 | PC.SS ---
Rounding note: patient is pending cardiology consultation. Possible d/c tomorrow. The d/c plan is pending.
--- NOTE | 2024-10-04 14:53 | PC.SS ---
Rounding note: patient is pending cardiology consult. Possible d/c tomorrow. D/c plan is to return home.
--- NOTE | 2024-10-04 17:00 | PD.RESCONSUL ---
HPI Data of Consult Requesting Physician: Namita Ohara DO Admitting Provider: Namita Ohara DO Attending Provider: Namita Ohara DO Primary Care Provider: Jermaine Spain MD Consult Narrative History of present illness: The patient is a 79-year-old female with significant past medical history of hypertension and hyperlipidemia presented to ED with gradual onset of shortness of breath for past 1 week. She reported associated orthopnea and PND, including GARVIN, able to walk 10-12 steps before getting SOB. Patient follow-up with physician tiler's assistant for cardiology in [place], and is on Holter monitor for bradycardia. The patient reported that she feels weak, but denied any dizziness, chest pain, palpitation, fever or chills, nausea or vomiting, any changes in bowel or bladder habit. During my evaluation, she was mildly hypertensive with blood pressure of 153/55, heart rate 44-45, RR 16, saturating 95% on room air. Labs revealed unremarkable CBC, CMP revealed sodium of 143, potassium 3.6, BUN 11, creatinine 0.7, A1c 6.1, magnesium 1.8, mild transaminitis with AST/ALT 46/52, and troponin 0.040. Cholesterol 146, LDL 60, HDL 68, TSH 2.57. Influenza A and influenza B were negative, chest x-ray was significant for moderate vascular congestion, with superimposed bilateral pneumonia. EKG revealed sinus bradycardia, with RBBB and QTc 412. TTE was significant for: Normal LV size, wall thickness. Estimated EF at 55-60 %. Grade I diastolic dysfunction. The RV is normal in size and systolic function. The estimated RVSP , 30 mmHg. RAP 5. Modertely dilated LA and mildly dilated RA. Mild MR, TR and PI. Mild AI. No pericardial effusion. PMH: As mentioned above Surgical history: Left knee surgery Social history: Smokes 2 to 3 cigarettes/day, 1-2. Smoking, denies alcohol or illicit drug use, good family support and lives with her children Home medications: Albuterol, aspirin, atorvastatin 20 Mg daily, vitamin D3, lisinopril 5 Mg daily, nitroglycerin 0.4 Mg buccal as needed Allergies: No known allergies Cardiology consultation was done for further management of new onset HFpEF exacerbation and bradycardia. cc:: cc: Namita Ohara DO Review of Systems Review of Systems Systems Reviewed: All systems reviewed, normal except as documented (Above) Exam Vital Signs Temp Pulse Resp BP Pulse Ox O2 Del Method 97.3 F 45 L 20 153/55 H 93 L Room Air 10/04/24 16:00 10/04/24 16:00 10/04/24 16:00 10/04/24 16:00 10/04/24 16:00 10/04/24 16:00 Narrative Exam General: No acute distress, Alert and Oriented x 3 HEENT: Moist mucous membranes, oropharynx clear Neck: Supple, No masses, No JVD CVS: Sinus bradycardia, No murmurs, rubs or gallops Lungs: Bibasilar crackles appreciated, no wheeze no rhonchi Abd: Soft, NT/ND, +BS, no organomegaly Ext: No edema, warm and well perfused Skin: No rash Psych: Appropriate mood and affect Results Labs 10/04/24 04:47 10/04/24 04:47 Labs: Short CBC 10/04/24 Range/Units 04:47 WBC 6.1 (3.6-11.0) Thou/mm3 Hgb 12.5 (12.0-16.0) g/dL Hct 37.7 (36.0-46.0) % Plt Count 136 L (140-440) Thou/mm3 BMP 10/04/24 04:47 Sodium 143 Potassium 3.6 D Chloride 102 Carbon Dioxide 29.9 BUN 13 Creatinine 0.7 Glucose 106 Calcium 8.7 Cardiac Enzymes 10/03/24 10/04/24 Range/Units 18:19 01:00 Troponin I 0.050 H* 0.040 (0.0-0.045) ng/mL Liver Function 10/04/24 Range/Units 04:47 Total Bilirubin 0.8 (0.3-1.2) mg/dL AST 46 H (0-34) U/L ALT 52 H (10-49) U/L Alkaline Phosphatase 106 D (46-116) U/L Albumin 3.6 D (3.4-4.8) gm/dL Quality Measures Quality Measures none Advance care planning discussed with:: patient Medications Home Medications and Allergies Home Medications ?Medication ?Instructions ?Recorded ?Confirmed ?Type albuterol sulfate 90 mcg/actuation 1 inh inhalation Q4H PRN shortness 10/03/24 10/03/24 History aerosol inhaler of breath or wheezing aspirin 81 mg tablet 81 mg PO QDAY 10/03/24 10/03/24 History atorvastatin 20 mg tablet 20 mg PO QDAY 10/03/24 10/03/24 History cholecalciferol (vitamin D3) 50 50 mcg PO QDAY 10/03/24 10/03/24 History mcg (2,000 unit) tablet (D3 DOTS) lisinopril 5 mg tablet 5 mg PO QDAY 10/03/24 10/03/24 History nitroglycerin 0.4 mg sublingual 0.4 mg buccal Q5MIN PRN chest pain 10/03/24 10/03/24 History tablet Allergies Allergy/AdvReac Type Severity Reaction Status Date / Time No Known Allergies Allergy Verified 10/03/24 10:08 Visit Medications Acetaminophen (Acetaminophen 325 Mg Tablet) 650 mg PO Q6H PRN PRN Reason: Fever >101.5 Stop: 11/02/24 12:36 Acetaminophen (Acetaminophen 325 Mg Tablet) 650 mg PO Q6H PRN PRN Reason: PAIN SCALE 1-3 (mild Stop: 11/02/24 12:36 Last Admin: 10/04/24 14:15 Dose: 650 mg Albuterol (Albuterol Inh 8 Gm) 1 puff INH Q4H PRN PRN Reason: shortness of breath or wheezing Stop: 11/02/24 12:35 Aspirin (Aspirin Ec 81 Mg Tabec) 81 mg PO QDAY [facility] Stop: 11/02/24 12:44 Last Admin: 10/04/24 08:18 Dose: 81 mg Atorvastatin Calcium (Atorvastatin Calcium 20 Mg Tablet) 20 mg PO HS [facility] Stop: 11/02/24 20:59 Last Admin: 10/03/24 20:42 Dose: 20 mg Dextrose (Dextrose 50%-Water Inj 50 Ml Syringe) 25 ml IV Q15MIN PRN PRN Reason: BG 50-70 responsive npo pt Stop: 11/02/24 12:42 Dextrose (Dextrose 50%-Water Inj 50 Ml Syringe) 50 ml IV Q15MIN PRN PRN Reason: BG <50 OR BG <70 & pt unresponsive Stop: 11/02/24 12:42 Furosemide (Furosemide Inj 10 Mg/Ml 4ml Vial) 40 mg IVP BIDD SONU Stop: 11/02/24 17:59 Last Admin: 10/04/24 06:06 Dose: 40 mg Glucagon (Glucagon Inj 1 Mg Vial) 1 mg IM Q15MIN PRN PRN Reason: BG <70, and no IV access Heparin Sodium (Porcine) (Heparin Sod Inj 5000 Unit/Ml Vial) 5,000 unit SC Q8HR [facility] Stop: 10/17/24 13:59 Last Admin: 10/04/24 14:15 Dose: 5,000 unit Insulin Human Lispro (Insulin Lispro (Admelog) 1 Unit/0.01 Ml Unit) 0 unit SC AC [facility]; Protocol Stop: 11/02/24 16:59 Last Admin: 10/04/24 12:51 Dose: Not Given Lisinopril (Lisinopril 2.5 Mg Tablet) 10 mg PO QDAY [facility] Stop: 11/03/24 08:59 Last Admin: 10/04/24 08:18 Dose: 10 mg Nitroglycerin (Nitroglycerin 0.4 Mg Subl Btl #25) 0.4 mg SL Q5MIN PRN PRN Reason: chest pain Stop: 11/02/24 12:35 Ondansetron HCl (Ondansetron Inj 2 Mg/Ml Inj 2 Ml) 4 mg IVP Q6H PRN; Protocol PRN Reason: NAUSEA OR VOMITING Stop: 11/02/24 12:36 Pantoprazole Sodium (Pantoprazole 40 Mg Tablet) 40 mg PO QDAY [facility] Stop: 11/03/24 08:59 Last Admin: 10/04/24 08:18 Dose: 40 mg Sennosides (Senna Tablet) 1 tab PO QDAY PRN; Protocol PRN Reason: constipation Stop: 11/02/24 12:36 Last Admin: 10/04/24 14:16 Dose: 1 tab Discontinued Medications Furosemide (Furosemide Inj 10 Mg/Ml Vial 2 Ml) 40 mg IVP X1 ONE Stop: 10/03/24 11:47 Last Admin: 10/03/24 12:11 Dose: 40 mg Hydralazine HCl (Hydralazine Inj 20 Mg/Ml Vial) 5 mg IVP Q6HR PRN PRN Reason: SBP>180 Stop: 11/02/24 12:36 Ceftriaxone Sodium/Dextrose (Rocephin/D5w 1gm Iv Premix) 1 gm in 50 mls @ 100 mls/hr IV X1 ONE Stop: 10/03/24 12:26 Last Infusion: 10/03/24 14:07 Dose: Infused Magnesium Sulfate (Magnesium Sulfate Ivpb) 2 gm in 50 mls @ 25 mls/hr IV X1 ONE Stop: 10/03/24 15:52 Last Admin: 10/03/24 14:14 Dose: 25 mls/hr Magnesium Sulfate (Magnesium Sulfate Ivpb) 4 gm in 50 mls @ 12.5 mls/hr IV X1 ONE Stop: 10/04/24 11:26 Last Admin: 10/04/24 08:19 Dose: 12.5 mls/hr Lisinopril (Lisinopril 20 Mg Tablet) 20 mg PO QDAY [facility] Stop: 11/03/24 08:59 Lisinopril (Lisinopril 20 Mg Tablet) 20 mg PO X1 ONE Stop: 10/03/24 13:13 Last Admin: 10/03/24 14:08 Dose: Not Given Potassium Chloride (Potassium Chloride 20 Meq Tabcr) 40 meq PO X1 ONE Stop: 10/04/24 07:28 Last Admin: 10/04/24 08:17 Dose: 40 meq Assessment & Plan Plan The patient is a 79-year-old female with significant past medical history of hypertension and hyperlipidemia presented to ED with gradual onset of shortness of breath for past 1 week. Cardiology consultation was done for further management of new onset HFpEF exacerbation and bradycardia. #New onset CHF exacerbation Presented with orthopnea, PND, SOB, BNP 758, chest x-ray revealing moderate vascular congestions - Continue with furosemide 40 Mg IV daily - Strict ins and outs - Fluid restriction 1500 cc/day incorporated in diet - Low-sodium diet - TTE revealed: Normal LV size, wall thickness. Estimated EF at 55-60 %. Grade I diastolic dysfunction. The RV is normal in size and systolic function. The estimated RVSP , 30 mmHg. RAP 5. Modertely dilated LA and mildly dilated RA. Mild MR, TR and PI. Mild AI. No pericardial effusion - May consider SGLT2 inhibitor - Telemetry monitoring #Asymptomatic sinus bradycardia Chronotropically nonresponsive to exertion TSH WNL EKG revealed sinus bradycardia with rate of 44 Patient is not on any beta-james or calcium channel james - Telemetry monitoring - The patient will likely not require any pacemaker at this time, as the patient is asymptomatic due to sinus bradycardia - Recommended to keep magnesium and potassium greater than 2 and 4 respectively at all the times #Hyperlipidemia -Continue on home atorvastatin 20 Mg p.o. at night #Hypertensive urgency, resolved #Hypertension - Continue with lisinopril 10 Mg daily #Asymptomatic pyuria #Mild transaminitis -Management deferred to primary hospitalist team We appreciate cardiology consultation. Thank you for your opportunity to participate in this patient care. Cardiology team will continue to follow-up on this patient. The patient's management plan was discussed with my attending physician MD Jared Biggs MD, PGY3
[2024-10-04] MEDS: ATORVASTATIN CALCIUM 20 MG TABLET PO (21:09)
[2024-10-05] VITALS (9 sets, daily range): BP systolic 136–155; BP diastolic 34–53; PULSE 40–47; RESP 14–17; TEMP 36.1–36.6; O2SAT 94–97
[2024-10-05] MEDS: HEPARIN SOD INJ 5000 UNIT/ML VIAL SC ×2 (05:31→14:20)
[2024-10-05 06:20] LABS: Basophils # (Auto) 0.0 Thou/mm3 (0.0-0.2); Basophils % (Auto) 1 % (0-2.5); Eosinophils # (Auto) 0.2 Thou/mm3 (0.0-0.5); Eosinophils % (Auto) 3 % (0-10); Hematocrit 40.1 % (36.0-46.0); Hemoglobin 13.4 g/dL (12.0-16.0); Immature Granulocytes Auto 0.02 Thou/mm3 (0.00-0.00); Lymphocytes # (Auto) 1.1 Thou/mm3 (1.0-4.8); Lymphocytes % (Auto) 17 % (10-50); Mean Corpuscular HGB Conc 33.4 g/dl (31.0-37.0); Mean Corpuscular Hemoglobin 31.4 pg (25.0-35.0); Mean Corpuscular Volume 94 fL (80-100); Monocytes # (Auto) 0.7 Thou/mm3 (0.0-0.8); Monocytes % (Auto) 11 % (0-12); Neutrophils # (Auto) 4.2 Thou/mm3 (1.8-7.7); Neutrophils % (Auto) 68 % (37-80); Nucleated Red Blood Cell # 0.00 Thou/mm3 (0.00-0.00); Nucleated Red Blood Cell % 0 /100 WBC (0); Platelet Count 148 Thou/mm3 (140-440); RDW Standard Deviation 47.8 fL (36.4-46.3); Red Blood Count 4.27 Miln/mm3 (4.00-5.20); White Blood Count 6.1 Thou/mm3 (3.6-11.0)
[2024-10-05 06:35] LABS: Alanine Aminotransferase 38 U/L (10-49); Albumin, Serum 3.7 gm/dL (3.4-4.8); Albumin/Globulin Ratio 1.8 (1.2-2.2); Alkaline Phosphatase 108 U/L (46-116); Anion Gap 11 (7-16); Aspartate Amino Transferase 29 U/L (0-34); BUN/Creatinine Ratio 20 Ratio (12-20); Bilirubin,Total 0.7 mg/dL (0.3-1.2); Blood Urea Nitrogen 16 mg/dL (9-23); Calcium 9.0 mg/dL (8.3-10.6); Calcium (Corrected) 9.2 mg/dL (8.5-10.1); Carbon Dioxide 30.4 mMol/L (20.0-31.0); Chloride 99 mMol/L (98-107); Creatinine (Component) 0.8 mg/dL (0.6-1.3); Estimated Creatinine Clearance 41.3 mL/min (>60); Globulin 2.1 gm/dL (2.3-3.5); Glucose 100 mg/dL (74-106); Magnesium 2.2 mg/dL (1.6-2.6); Osmolality,Calculated 280 (275-295); Phosphorous 4.0 mg/dL (2.4-5.1); Potassium 3.9 mMol/L (3.4-5.1); Sodium 140 mMol/L (136-145); Total Protein 5.8 gm/dL (5.7-8.2); eGFR > 60 See Note
[2024-10-05] MEDS: PANTOPRAZOLE 40 MG TABLET PO (09:07)
[2024-10-05] MEDS: FUROSEMIDE INJ 10 MG/ML 4ML VIAL 40 MG IVP (09:07)
[2024-10-05] MEDS: ASPIRIN EC 81 MG TABEC PO (09:08)
--- NOTE | 2024-10-05 09:44 | PC.SS ---
SS follow up: patient confirmed she will return home upon d/c and her is able to transport her home. Patient was provided with community resource handout. No questions/needs at this time.
[2024-10-05 11:44] LABS: Cocci Serology, IgG Negative (Negative)
--- NOTE | 2024-10-05 17:01 | ESDS_ITS ---
<Statement entered by Namita Ohara DO - 10/06/24 16:11> I, Namita Ohara DO, attest that I was physically present for the montes portions of the service and evaluated the patient with the resident and I reviewed and discussed the case with the resident and agree with the resident's findings and plans of care as documented above <Statement entered by Deep Zhang MD - 10/05/24 17:59> I discussed and supervised with the internal corrosion specialist physician who took care of this patient. I personally saw and examined the patient. I agree with most of the assessment and plan. Disclaimer: Despite multiple revisions, due to the dictation software being used, the document bellow may not be free of grammatical errors including phonetic/typographic errors. However, this does not deter from our commitment to providing health care in the patient's best interest in mind. Plan of care discussed with attending Physician Dr. Mayda Zhang MD PGY-3 Planned Discharge Date 10/05/24 DS: Providers Provider Date of admission: 10/03/24 12:37 Primary care physician: Jermaine Spain MD Admitting Provider: Namita Ohara DO Attending Provider on Admission: Namita Ohara DO Consults: 10/03/24 13:53 Consult to Cardiology Routine Comment: Consulting Provider: Jerzy Pelletier 10/03/24 14:17 Referral Physical Therapy Routine Comment: Physician Instructions: 10/04/24 11:39 Referral Registered Dietitian Routine Comment: Attending Provider on DC: Namita Ohara DO Discharging Provider: Placido Guzmán DO Anticipated date of discharge: 10/05/24 DS: Diagnosis Problem List Completed Was Problem List Reviewed/Reconciled?: Yes Hospital Course Hospital Course Hospital course: Ms. Stewart is a 79F with history of bradycardia, hypertension and hyperlipidemia admitted for CHF exacerbation. On initial encounter in the ER, CXR shows bilateral fluffy infiltrate with a highly elevated BNP. Blood pressure was noted to be 195/59, concerning for possible hypertension urgency. Pt was given IV Lasix 40mg twice daily over the course of her stay in the hospital, and she had gradually improved to baseline. Net fluid deficit estimated to be around 4L. She is now ambulatory without feeling short of breathe and saturate well on room air. Pt advised to continue follow up with her rn picu for her bradycardia. Pt is medically and physically stable for discharge. Diagnosis #Acute HFpEF exacerbation #Hypertension urgency #Possible COPD exacerbation #Asymptomatic Bradycardia #Asymptomatic pyuria #Prediabetes #Hyperlipidemia #Possible Aortic regurgitation #Transaminitis Discharge Plan: Take lasix 20 mg once a day, Jardiance 10 mg once a day, lisinopril 10 mg once a day Take all other home meds as prescribed Follow up with your PCP as outpatient within a week Follow up with your rn picu in [place] as outpatient for requiring pacemaker placement due to bradycardia In case of emergency call 911 or come back to the ED Case discussed with my senior resident Dr. Zhang Case discussed with my attending Dr. Mayda Guzmán, PGY 1 Time Spent with Patient Time attestation: Total time spent providing and/or coordinating discharge services: Time spent: Greater than 30 minutes Exam Vital Signs Temp Pulse Resp BP Pulse Ox O2 Del Method 97.8 F 40 L 17 147/53 H 95 Room Air 10/05/24 12:00 10/05/24 12:00 10/05/24 12:10/05/24 12:10/05/24 12:10/05/24 04:00 Narrative Exam General: Well appearing, well nourished, in no distress. Oriented x 3, normal mood and affect. Ambulating without difficulty. Skin: Good turgor, no rash, unusual bruising or prominent lesions Neck: No JVD noted. Heart: No cardiomegaly or thrills; regular rate and rhythm, no murmur or gallop Lungs: CTAB. No crackles, rales, or rhonchi. Abdomen: Bowel sounds normal, no tenderness, organomegaly, masses, or hernia Extremities: No amputations or deformities, cyanosis, edema or varicosities, peripheral pulses intact. No bilateral pitting edema noted. Discharge Plan Plan Patient Disposition: HOME (Self Care) Patient condition on transfer: Stable Care Plan Goals: [place] Lasix 20 mg nikole vez al d?a, Jardiance 10 mg nikole vez al d?a, lisinopril 10 mg nikole vez al d?a. [place] todos los dem?s medicamentos en casa seg?n lo prescrito. Consulte con [facility] m?dico de cabecera yared paciente ambulatorio dentro de nikole semana. Consulte con [facility] cardi?logo en [place] yared paciente ambulatorio por la necesidad de colocar un marcapasos debido a bradicardia. En erick de emergencia, llame al 911 o regrese a urgencias. Take lasix 20 mg once a day, Jardiance 10 mg once a day, lisinopril 10 mg once a day Take all other home meds as prescribed Follow up with your PCP as outpatient within a week Follow up with your rn picu in [place] as outpatient for requiring pacemaker placement due to bradycardia In case of emergency call 911 or come back to the ED Prescriptions/Referrals Prescriptions/Med Rec: New lisinopril 10 mg tablet 10 mg PO QDAY Qty: 60 0RF Jardiance 10 mg tablet 10 mg PO QDAY Qty: 60 0RF furosemide [Lasix] 20 mg tablet 20 mg PO QDAY Qty: 90 0RF Continued cholecalciferol (vitamin D3) [D3 DOTS] 50 mcg (2,000 unit) tablet 50 mcg PO QDAY nitroglycerin 0.4 mg tablet, sublingual 0.4 mg buccal Q5MIN PRN (Reason: chest pain) aspirin 81 mg tablet 81 mg PO QDAY atorvastatin 20 mg tablet 20 mg PO QDAY albuterol sulfate 90 mcg/actuation HFA aerosol inhaler 1 inh inhalation Q4H PRN (Reason: shortness of breath or wheezing) Discontinued lisinopril 5 mg tablet 5 mg PO QDAY Referrals: Jermaine Spain MD [Primary Care Provider] - Patient/Caregiver Discharge Instructions Education Materials: Heart Failure Signs of Flare-Up, Heart Failure: Tracking Your Weight Print Language: Azeri Stand Alone Forms: [employer] Info., Patient Portal Info Letter Discharge Order Discharge Orders: Discharge (Routine); Ordered 10/05/24 Ordered By: Deep Zhang Quality Discharge Quality Measures none
== END 2024-10-05 15:05 | disposition home or self-care (01) | DRG 291 ==
LOC: SERX 12:38 → SERHOLD 12:57 → S3NX 15:13
PROVIDERS: Nurse Practitioner Family; Student in an Organized Health Care Education/Training Program; Admitting Provider Internal Medicine; Emergency Provider Emergency Medicine; PCP Family Medicine; Visit Provider Internal Medicine
DX: I11.0 Hypertensive heart disease with heart failure (principal); I50.33 Acute on chronic diastolic (congestive) heart failure; J18.9 Pneumonia, unspecified organism; E78.5 Hyperlipidemia, unspecified; F17.210 Nicotine dependence, cigarettes, uncomplicated; I45.10 Unspecified right bundle-branch block; I16.0 Hypertensive urgency; R00.1 Bradycardia, unspecified; R82.81 Pyuria; R73.03 Prediabetes; Z79.899 Other long term (current) drug therapy; R74.01 Elevation of levels of liver transaminase levels
CPT/HCPCS: 36415; 71046; 80053; 80061; 81001; 83036; 83735; 83880; 84100; 84443; 84484; 85025; 85610; 85730; 86331; 86635; 87040; 87502; 87811; 93005; 93306; 96365; 96375; 96376; 97162; 99285; J0696; J1644; J1938; J3475; A9270